=== PATIENT | female | born 1980 | race Caucasian/White ===

== ENCOUNTER 2017-06-09 01:44 | Emergency (ER) | payer OTHER ==
[2017-06-09 05:42] LABS: HEMOGLOBIN 9.7 gm/dl (12.3-15.3); RED BLOOD COUNT 3.61 M/UL (4.00-5.10); WHITE BLOOD COUNT 9.4 K/UL (4.5-11.0)
[2017-06-09 06:11] LABS: BUN/CREATININE RATIO 13 (0-10)
== END 2017-06-09 06:35 | disposition home or self-care (01) ==
LOC: ER1 01:44
PROVIDERS: Family Medicine
DX: S01.01XA Laceration without foreign body of scalp, initial encounter (principal); D64.9 Anemia, unspecified; W18.30XA Fall on same level, unspecified, initial encounter; Y93.89 Activity, other specified; Y92.009 Unspecified place in unspecified non-institutional (private) residence as the place of occurrence of the external cause
CPT/HCPCS: 36415; 70450; 80053; 81001; 82550; 82553; 83874; 84484; 85025; 85379; 93005; 99284; G0480